=== PATIENT | female | born 1950 | race Hispanic/Latino ===

== ENCOUNTER 2017-12-02 13:01 | Emergency (ER) | payer SELFPAY ==
[2017-12-02] MEDS ORDERED: Morphine 4 MG/ML Carpuject ONE (13:39)
[2017-12-02] MEDS ORDERED: Labetalol HCl 100 MG/20 ML VIAL ONE (13:40)
[2017-12-02] MEDS ORDERED: Ondansetron HCl/PF 4 MG/2 ML Vial ONE (13:40)
[2017-12-02 13:42] LABS: #Basophils 0.1 thou/uL (0.0-0.2); #Eosinphils 0.1 thou/uL (0.0-0.7); #Lymphocytes 1.5 thou/uL (1.20-3.40); #Monocytes 0.4 thou/uL (0.11-0.59); #Neutrophils 2.8 thou/uL (1.40-6.50); %Basophils 1.3 % (0.0-1.0); %Eosinophils 2.6 % (0.0-10.0); %Lymphocytes 31.1 % (21.0-51.0); %Monocytes 7.8 % (0.0-10.0); %Neutrophils 57.3 % (42.0-75.0); Hemoglobin 10.7 g/dL (12.0-16.0); Mean Corpuscular Volume 88.5 fl (81.0-99.0); Mean Platelet Volume 5.2 fL (7.4-10.4); Platelet Count 235 thou/uL (130-400); RBC Distribution Width 13.6 % (11.5-14.5); Red Blood Cell (RBC) Count 3.46 mill/uL (4.20-5.40); White Blood Cell (WBC) Count 4.8 thou/uL (4.8-10.8)
[2017-12-02 13:57] LABS: ALT (SGPT) 9 U/L (8-55); AST (SGOT) 16 U/L (5-34); Albumin 3.8 g/dL (3.4-4.8); Alkaline Phosphatase 82 U/L (40-150); Anion Gap 16 mmol/L (10-20); BUN (Urea Nitrogen) 58 mg/dL (9.8-20.1); Bilirubin, Total 0.4 mg/dL (0.2-1.2); CK (CPK) 55 U/L (29-168); Calc. Creatinine Clearance 0 mL/min (70-130); Calcium 9.5 mg/dL (7.8-10.44); Carbon Dioxide 17 mmol/L (23-31); Chloride 110 mmol/L (98-107); Estimated GFR-MDRD 8; Globulin 3.4 g/dL (2.4-3.5); Glucose 162 mg/dL (80-115); Lipase 44 U/L (8-78); Potassium 4.6 mmol/L (3.5-5.1); Protein, Total 7.2 g/dL (6.0-8.3); Sodium 138 mmol/L (136-145)
[2017-12-02 14:41] LABS: Bilirubin Negative (Negative); Blood, Urine Trace (Negative); Clarity Clear (Clear); Glucose, Urine (Dipstick) 100 mg/dL (Negative); Leukocyte Small (Negative); Nitrite Negative (Negative); Protein, Urine (Dipstick) > or equal to 300 mg/dL (Neg-Trace); Specific Gravity, Urine 1.015 (1.005-1.030); Urobilinogen 0.2 mg/dL (0.2-1.0)
--- NOTE | 2017-12-02 14:41 | CT ---
CT ABDOMEN AND PELVIS WITHOUT IV CONTRAST: Date: 12/02/17 INDICATION: Abdominal pain with nausea and vomiting. COMPARISON: None. FINDINGS: The lack of IV contrast limits evaluation. The lung bases are clear. There is a calcified granuloma in the right hepatic dome. The gallbladder is mildly distended. No definite underlying lesion is evident within the liver, within the limitations of this noncontrast exam. Unopacified pancreas, adrenal glands, and spleen appear within normal limits. No definite hydronephrosis is evident. No renal or ureteral calculus noted. There are mild vascular calcifications involving the abdominopelvic vasculature. There is a normal appendix in the right lower quadrant of the abdomen. No free fluid is evident. Bladder, rectum, and perirectal soft tissues are unremarkable. There are vascular calcifications invo lving the uterus. There is scattered degenerative and osteoarthritic change. No acute osseous abnorma lity is evident. IMPRESSION: No definite acute abnormality demonstrated within the limitations of the exam. POS: RUDDY
[2017-12-02 14:43] LABS: Bacteria/HPF 2+ HPF (None Seen); RBC/HPF 0-3 HPF (0-3); Squamous Epithelial 0-3 HPF (0-3)
[2017-12-02] MEDS ORDERED: cefTRIAXone\\ROCEPHIN 2 GM VIAL ONE (14:53)
== END 2017-12-02 15:22 | disposition short-term general hospital (02) ==
LOC: BURERS 13:01
DX: N17.9 Acute kidney failure, unspecified (principal); I10 Essential (primary) hypertension; E11.9 Type 2 diabetes mellitus without complications; Z79.84 Long term (current) use of oral hypoglycemic drugs
CPT/HCPCS: 36415; 36416; 74176; 80053; 81003; 81015; 82550; 83690; 85025; 87040; 87086; 93005; 96361; 96365; 96375; 96376; J0696; J2270; J2405

== ENCOUNTER 2024-05-31 15:14 | Emergency (ER) | payer BC ==
[~2024-05-31 15:14] MED LIST: Iopamidol 370 76% 100 ML VIAL ONE
[2024-05-31 15:41] LABS: #Basophils 0.1 thou/uL (0.0-0.2); #Eosinophils 0.5 thou/uL (0.0-0.7); #Lymphocytes 1.4 thou/uL (1.20-3.40); #Monocytes 0.6 thou/uL (0.11-0.59); #Neutrophils 3.3 thou/uL (1.40-6.50); %Basophils 1.1 % (0.0-1.0); %Eosinophils 8.3 % (0.0-10.0); %Lymphocytes 24.1 % (21.0-51.0); %Monocytes 9.6 % (0.0-10.0); Hematocrit 39.4 % (36.0-47.0); Hemoglobin 12.6 g/dL (12.0-16.0); Mean Corpuscular Hemoglobin 31.5 pg (27.0-31.0); Mean Corpuscular Volume 98.3 fl (78.0-98.0); Mean Platelet Volume 5.5 fL (7.4-10.4); Platelet Count 233 10x3/uL (130-400); RBC Distribution Width 12.9 % (11.5-14.5); Red Blood Cell (RBC) Count 4.01 mill/uL (4.20-5.40); White Blood Cell (WBC) Count 5.8 10x3/uL (4.8-10.8)
[2024-05-31 15:54] LABS: INR-International Normal Ratio 1.1; Prothrombin Time 13.9 sec (12.0-14.7)
[2024-05-31 15:57] LABS: ALT (SGPT) 16 U/L (8-55); AST (SGOT) 27 U/L (5-34); Albumin 4.1 g/dL (3.4-4.8); Alkaline Phosphatase 108 U/L (40-110); Anion Gap 21 mmol/L (10-20); BUN (Urea Nitrogen) 34 mg/dL (9.8-20.1); Bilirubin, Total 0.4 mg/dL (0.2-1.2); Calc. Creatinine Clearance 0 mL/min (70-130); Calcium 9.2 mg/dL (7.8-10.44); Carbon Dioxide 22 mmol/L (23-31); Chloride 101 mmol/L (98-107); Estimated GFR 5; Globulin 4.2 g/dL (2.4-3.5); Glucose 123 mg/dL (83-110); Potassium 3.9 mmol/L (3.5-5.1); Protein, Total 8.3 g/dL (5.8-8.1); Sodium 140 mmol/L (136-145)
== END 2024-05-31 17:59 | disposition home or self-care (01) ==
LOC: BURERS 15:14
DX: M62.81 Muscle weakness (generalized) (principal); I12.0 Hypertensive chronic kidney disease with stage 5 chronic kidney disease or end stage renal disease; E11.22 Type 2 diabetes mellitus with diabetic chronic kidney disease; N18.6 End stage renal disease; R29.701 NIHSS score 1; Z99.2 Dependence on renal dialysis
CPT/HCPCS: 0042T; 36416; 70450; 70496; 70498; 80053; 85025; 85610; 93005; Q9967